=== PATIENT | male | born 1965 | race Hispanic/Latino ===

== ENCOUNTER 2017-08-10 13:58 | Emergency (ER) | payer OTHER ==
[~2017-08-10] VITALS: Ht 185.4 cm; Wt 88.6 kg
[2017-08-10 15:42] LABS: CHLORIDE 102 mEq/L (99-109); POTASSIUM 2.8 mEq/L (3.7-5.4); SODIUM 134 mEq/L (136-147)
[2017-08-10 15:44] LABS: GLUCOSE 154 mg/dL (70-99)
[2017-08-10 15:45] LABS: HEMATOCRIT 32.6 % (38.0-50.0); MCH 29.1 PG (29.0-34.0); MCHC 35.3 G/DL (30.0-36.0); MEAN PLAT.VOLUME 10.8 uM^3 (9.0-12.4); PLATELET COUNT 123 K/uL (156-360); RBC DIS.WIDTH-CV 14.4 % (11.8-14.6); RBC DIS.WIDTH-SD 43.8 % (39-53); RED BLOOD COUNT 3.95 M/uL (4.00-5.50); WHITE BLOOD COUNT 15.4 K/uL (4.1-10.2)
[2017-08-10 15:46] LABS: ANION GAP 11 MEQ/L (2-14); TOTAL BILIRUBIN 5.3 mg/dL (0.0-1.0)
[2017-08-10 15:48] LABS: ALKALINE PHOSPHATASE 177 IU/L (3-129); GFR ESTIMATE (CALCULATED) 49 mL/min/
[2017-08-10 15:49] LABS: UREA NITROGEN (BUN) 70 mg/dL (9-23)
[2017-08-10 15:51] LABS: LIPASE 65 U/L (1.0-51.0)
[2017-08-10 16:35] LABS: ABS NEUTROPHIL COUNT 14.5; ANISOCYTOSIS 1+; BAND NEUTROPHILS 13.9 % (0-8.0); BURR CELLS 1+; EOSINOPHIL ABS CT 0; INSTRUMENT ABS NEUTROPHIL CT 13.9 K/uL; LYMPHOCYTES 0.9 % (15.0-45.0); METAMYELOCYTES 1.7 %; OVALOCYTES 1+; PLAT.SUFFICIENCY DECREASED; POIKILOCYTOSIS 1+
[2017-08-10 16:40] LABS: ADD MIUA? YES; BILIRUBIN NEGATIVE; BLOOD MODERATE; COLOR AMBER ((YELLOW)); GLUCOSE (STRIP) NEGATIVE; KETONES NEGATIVE; LEUKOCYTES NEGATIVE; NITRITE NEGATIVE; PROTEIN (STRIP) NEGATIVE; SPECIFIC GRAVITY 1.012 (1.000-1.030)
[2017-08-10 16:46] LABS: MCV 82.5 FL (86-99)
[2017-08-10 16:46] LABS: BACTERIA RARE /HPF; EPITHELIAL CELLS NONE SEEN /HPF; MUCUS TRACE /LPF; UCUL ADDED? NO; WHITE BLOOD CELLS 0-5 /HPF (0-5)
[2017-08-10] MEDS ORDERED: ALLOPURINOL300 MG PO (20:31)
[2017-08-10] MEDS ORDERED: LISINOPRIL40 MG PO (20:31)
[2017-08-10] MEDS ORDERED: REGULOID PO (20:32)
[2017-08-10 20:35] LABS: POINT-OF-CARE METER ID UU14100415
[2017-08-10 21:14] VITALS: BP 107/74
== END 2017-08-10 21:27 | disposition short-term general hospital (02) ==
LOC: EME 13:58
PROVIDERS: Emergency Medicine
DX: K85.91 Acute pancreatitis with uninfected necrosis, unspecified (principal); N17.9 Acute kidney failure, unspecified; E87.6 Hypokalemia; I10 Essential (primary) hypertension; B15.9 Hepatitis A without hepatic coma
CPT/HCPCS: 71010; 74176; 80053; 81003; 82948; 83605; 83690; 85025 91; 93005; 99281; 99285; J2405; J2543; J7030